=== PATIENT | female | born 1965 | race Caucasian/White ===

== ENCOUNTER 2022-06-09 13:57 | Outpatient (CLI) | payer OTHER, SELFPAY ==
[2022-06-09 14:12] LABS: Albumin* 4.5 g/dL (3.3-5.0)
[2022-06-09 14:13] LABS: Chloride* 104 mmol/L (96-114); Sodium* 141 mmol/L (135-149)
[2022-06-09 14:15] LABS: Bilirubin Total* 0.7 mg/dL (0.1-1.5); Carbon Dioxide* 29 mmol/L (20-32); Cholesterol* 244 mg/dL (90-199); Creatinine* 1.1 mg/dL (0.5-1.5); Estimated Glomerular Filt Rate 59 ml/min; Total Protein* 7.3 g/dL (6.0-8.3)
[2022-06-09 14:16] LABS: Alanine Aminotransferase* 23 U/L (4-35); Alkaline Phosphatase* 92 U/L (40-150); Aspartate Amino Transferase* 26 U/L (12-35); Blood Urea Nitrogen* 16 mg/dL (7-30); Calcium* 9.5 mg/dL (8.4-10.6); Glucose* 90 mg/dL (60-115); HDL Cholesterol* 72 mg/dL (>=50); LDL Cholesterol Calculated 153 mg/dL (<100); Triglycerides* 93 mg/dL (40-149)
== END 2022-06-09 13:58 | disposition home or self-care (01) ==
PROVIDERS: PCP Physician Assistant Medical; Visit Provider Physician Assistant Medical
DX: Z00.00 Encounter for general adult medical examination without abnormal findings (principal); E03.9 Hypothyroidism, unspecified; E78.5 Hyperlipidemia, unspecified; I10 Essential (primary) hypertension
CPT/HCPCS: 80053; 80061; 84439; 84443

== ENCOUNTER 2022-06-10 07:39 | Outpatient (CLI) | payer OTHER, SELFPAY ==
[2022-06-12 02:19] LABS: Rheumatoid Factor <10 IU/mL (0-14)
== END 2022-06-10 07:40 | disposition home or self-care (01) ==
PROVIDERS: PCP Physician Assistant Medical; Visit Provider Physician Assistant Medical
DX: M25.50 Pain in unspecified joint (principal)
CPT/HCPCS: 86200; 86431

== ENCOUNTER 2022-08-20 08:53 | Outpatient (CLI) | payer OTHER, SELFPAY | END 2022-08-20 08:54 | disposition home or self-care (01) | LOC: NFLDREF 08-22 04:28 | PROVIDERS: PCP Physician Assistant Medical; Referring Provider Physician Assistant Medical; Visit Provider Physician Assistant Medical | DX: E03.9 Hypothyroidism, unspecified (principal) | CPT/HCPCS: 84443 ==

== ENCOUNTER 2023-06-08 09:45 | Outpatient (CLI) | payer OTHER, SELFPAY | END 2023-06-08 09:46 | disposition home or self-care (01) | LOC: NFLDREF 06-11 10:37 | PROVIDERS: PCP Physician Assistant Medical; Referring Provider Physician Assistant Medical; Visit Provider Physician Assistant Medical | DX: E78.2 Mixed hyperlipidemia (principal); I10 Essential (primary) hypertension; E03.9 Hypothyroidism, unspecified | CPT/HCPCS: 80053; 80061; 84443 ==

== ENCOUNTER 2023-10-02 09:27 | Outpatient (CLI) | payer OTHER, SELFPAY | END 2023-10-02 09:28 | disposition home or self-care (01) | LOC: NFLDREF 10-05 07:25 | PROVIDERS: PCP Physician Assistant Medical; Referring Provider Physician Assistant Medical; Visit Provider Physician Assistant Medical | DX: E78.5 Hyperlipidemia, unspecified (principal) | CPT/HCPCS: 80061; 84450; 84460 ==

== ENCOUNTER 2024-06-28 08:40 | Outpatient (CLI) | payer OTHER, SELFPAY | END 2024-06-28 08:41 | disposition home or self-care (01) | LOC: NFLDREF 07-04 01:51 | PROVIDERS: PCP Physician Assistant Medical; Referring Provider Physician Assistant Medical; Visit Provider Physician Assistant Medical | DX: E03.9 Hypothyroidism, unspecified (principal); M25.50 Pain in unspecified joint; E78.2 Mixed hyperlipidemia; I10 Essential (primary) hypertension | CPT/HCPCS: 80053; 80061; 84443; 86200; 86431 ==